=== PATIENT | female | born 1935 | race Caucasian/White ===

== ENCOUNTER 2021-06-09 20:27 | Emergency (ER) | payer MEDICARE ==
[~2021-06-09] VITALS: Ht 157.5 cm; Wt 83.0 kg
[~2021-06-09 20:27] MED LIST: ADVAIR DISK2 IN; ADVAIR DISKU IN; ALDACTONE25 MG OR; AMBIEN5 MG PO; AMITRIPTYLIN25 MG OR; AMITRIPTYLIN25 MG PO; AMLODIPINE BESYL5 MG PO; AMLODIPINE10 MG PO; APAP PO; ASACOL400 MG OR; BAYER ASPIRIN325 MG PO; BAYER LOW81 MG PO; BENZONATATE100 MG OR; CELEBREX200 MG OR; CELEBREX200 MG PO; CHERATUSSIN OR; CIPRO250 MG PO; CIPRO500 MG PO; CRESTOR20 MG PO; DIAZEPAM5 MG PO; DOXYCYCLINE HY100 MG PO; FLAGYL500 MG PO; FLEXERIL10 MG PO; FLULAVAL IM; IMDUR30 MG OR; KLOR-CON M2020 MEQ OR; LASIX 20 MG TAB20 MG PO; LEXAPRO20 MG OR; LIPITOR10 MG PO; LOMOTIL2.5 MG PO; LORTAB 7.5 PO; LORTAB 7.5-3251 TAB PO; LORTAB 7.57.5 MG PO; MEDDOSEPAK PO; MEDROL4 M1 PO; MELOXICAM7.5 MG PO; MICARDIS80 MG PO; MOBIC7.5 MG PO; NEXIUM40 M1 OR; NEXIUM40 M1 PO; NORVASC10 MG OR; OXYCOD PO; PAROXETINE20 MG PO; PERCOCET1 TA4 PO; PLAVIX75 MG OR; PREDNISODT10 PO; RESTORIL15 MG PO; TEMAZEPAM15 MG PO; TIZANIDINE4 MG PO; TOPROL XL OR; ULTRAM50 MG PO; VENLAFAXINE HCL75 M1 PO; ZITHROMAX250 MG OR; ZOLPIDEM5 MG PO; [UNRECOGNIZED DRUG - CODE] TD
[2021-06-09 21:05] LABS: HEMATOCRIT 41.6 % (37.0-47.0); HEMOGLOBIN 12.5 g/dl (12.0-16.0); MEAN CELL VOLUME 88.7 fL CALC (80.0-100.0); MEAN CORPUSCULAR HGB 26.7 pG CALC (26.0-32.0); NEUT# 5.08 thou/uL (2.00-7.15); RED BLOOD COUNT 4.69 mill/uL (4.20-5.60); RED CELL DISTRI WIDTH 15.2 % (11.5-15.5)
[2021-06-09 21:06] LABS: URINE BILIRUBIN - DIPSTICK NEGATIVE (NEGATIVE); URINE BLOOD DIPSTICK NEGATIVE (NEGATIVE); URINE COLOR YELLOW; URINE GLUCOSE - DIPSTICK NEGATIVE (NEGATIVE); URINE KETONE NEGATIVE (NEGATIVE); URINE LEUK ESTERASE NEGATIVE (NEGATIVE); URINE PROTEIN - DIPSTICK NEGATIVE (NEG-TRACE); URINE SPECIFIC GRAVITY >=1.030; URINE UROBILINOGEN - DIPSTICK 0.2 E.U./dL (0.2)
[2021-06-09 21:09] LABS: URINE NITRITE - DIPSTICK NEGATIVE (Negative)
[2021-06-09 21:16] LABS: ALBUMIN 3.9 g/dL (3.2-5.0); ALKALINE PHOSPHATASE 76 u/l (38-126); ANION GAP 11 (6-22 (CALC)); BILIRUBIN, TOTAL 0.4 mg/dL (0.0-1.4); BUN 14 mg/dL (8-23); BUN/CREATININE RATIO 14 (12-20 (CALC)); CARBON DIOXIDE 28 mmol/l (22-30); CHLORIDE 106 mmol/l (95-108); GFR 53 ML/MIN (>=60 (CALC)); GFR FOR AFR.AMER. > 60 ML/MIN (>=60 (CALC)); POTASSIUM 3.9 mmol/l (3.5-5.1); SGOT/AST 25 u/l (9-36); SODIUM 141 mmol/l (137-146)
[2021-06-09] MEDS ORDERED: ULTRAM50 M1 PO (22:08)
[2021-06-09] MEDS ORDERED: CYCLOBENZAPRINE10 MG PO (22:08)
[2021-06-10 00:10] VITALS: BP 90/50
== END 2021-06-10 00:10 | disposition home or self-care (01) ==
LOC: ED 20:27
PROVIDERS: Emergency Medicine
DX: M47.816 Spondylosis without myelopathy or radiculopathy, lumbar region (principal); I10 Essential (primary) hypertension; F41.9 Anxiety disorder, unspecified

== ENCOUNTER 2021-12-15 08:25 | Emergency (ER) | payer MEDICARE ==
[~2021-12-15] VITALS: Ht 157.5 cm; Wt 90.7 kg
[~2021-12-15 08:25] MED LIST changes: +CYCLOBENZAPRINE10 MG PO; +ULTRAM50 M1 PO
[2021-12-15 08:30] VITALS: BP 142/69
[2021-12-15 08:46] LABS: HEMATOCRIT 41.2 % (37.0-47.0); HEMOGLOBIN 12.6 g/dl (12.0-16.0); IMMATURE GRANULOCYTES 0.1 % (0.0-5.0); MEAN CELL VOLUME 86.9 fL CALC (80.0-100.0); MEAN CORPUSCULAR HGB 26.6 pG CALC (26.0-32.0); MEAN CORPUSCULAR HGB CONC 30.6 g/dL CAL (32.0-36.0); NEUT# 6.26 thou/uL (2.00-7.15); RED BLOOD COUNT 4.74 mill/uL (4.20-5.60); RED CELL DISTRI WIDTH 15.3 % (11.5-15.5)
[2021-12-15 09:00] VITALS: BP 128/68
[2021-12-15 09:37] LABS: GFR FOR AFR.AMER. > 60 ML/MIN (>=60 (CALC)); GFR OTHER RACES 60 ML/MIN (>=60 (CALC))
[2021-12-15 09:44] LABS: ALBUMIN 3.9 g/dL (3.2-5.0); ALKALINE PHOSPHATASE 71 u/l (38-126); ANION GAP 9 (6-22 (CALC)); BILIRUBIN, TOTAL 0.5 mg/dL (0.0-1.4); BUN 20 mg/dL (8-23); BUN/CREATININE RATIO 21 (12-20 (CALC)); CARBON DIOXIDE 30 mmol/l (22-30); CHLORIDE 105 mmol/l (95-108); CREATININE 0.9 mg/dL (0.5-1.0); GFR FOR AFR.AMER. > 60 ML/MIN (>=60 (CALC)); GFR OTHER RACES 60 ML/MIN (>=60 (CALC)); POTASSIUM 4.3 mmol/l (3.5-5.1); SGOT/AST 29 u/l (9-36); SODIUM 139 mmol/l (137-146); TOTAL PROTEIN 7.1 g/dL (6.3-8.2)
[2021-12-15 10:47] VITALS: BP 114/52
[2021-12-15 11:01] VITALS: BP 125/60
[2021-12-15 11:15] LABS: URINE BILIRUBIN - DIPSTICK NEGATIVE (NEGATIVE); URINE BLOOD DIPSTICK NEGATIVE (NEGATIVE); URINE COLOR YELLOW; URINE GLUCOSE - DIPSTICK NEGATIVE (NEGATIVE); URINE KETONE NEGATIVE (NEGATIVE); URINE LEUK ESTERASE TRACE (NEGATIVE); URINE PROTEIN - DIPSTICK NEGATIVE (NEG-TRACE); URINE SPECIFIC GRAVITY <=1.005; URINE UROBILINOGEN - DIPSTICK 0.2 E.U./dL (0.2)
[2021-12-15 11:18] LABS: URINE NITRITE - DIPSTICK NEGATIVE (Negative)
[2021-12-15 11:31] VITALS: BP 133/63
[2021-12-15 11:33] VITALS: BP 133/63
--- NOTE | 2021-12-17 13:48 | NUR ---
PRELIMINARY BLOOD CULTURE SHOWS GRAM POSITIVE COCCI IN 2/[address] MANRIQUEZ. RESULTS REPORTED TO NURSE ELLIS AT [facility] AND FAXED TO [phone]. WILL F/U WITH FINALS
== END 2021-12-15 11:57 | disposition home or self-care (01) ==
LOC: ED 08:25
PROVIDERS: Family Medicine
DX: R06.02 Shortness of breath (principal); I11.0 Hypertensive heart disease with heart failure; I50.9 Heart failure, unspecified; F41.9 Anxiety disorder, unspecified; E66.9 Obesity, unspecified; J44.9 Chronic obstructive pulmonary disease, unspecified; Z20.822 Contact with and (suspected) exposure to COVID-19
CPT/HCPCS: Q9967

== ENCOUNTER 2021-12-18 08:53 | Observation (INO) | payer MEDICARE ==
[2021-12-18] VITALS (8 sets, daily range): BP systolic 117–159; BP diastolic 41–83
[~2021-12-18] VITALS: Ht 157.5 cm; Wt 91.4 kg
[2021-12-18 09:25] LABS: HEMATOCRIT 40.7 % (37.0-47.0); HEMOGLOBIN 12.5 g/dl (12.0-16.0); IMMATURE GRANULOCYTES 0.1 % (0.0-5.0); MEAN CORPUSCULAR HGB 26.7 pG CALC (26.0-32.0); MEAN CORPUSCULAR HGB CONC 30.7 g/dL CAL (32.0-36.0); NEUT# 6.43 thou/uL (2.00-7.15); RED BLOOD COUNT 4.68 mill/uL (4.20-5.60); RED CELL DISTRI WIDTH 15.5 % (11.5-15.5)
[2021-12-18 09:40] LABS: ALKALINE PHOSPHATASE 67 u/l (38-126); ANION GAP 13 (6-22 (CALC)); BILIRUBIN, TOTAL 0.4 mg/dL (0.0-1.4); BUN 24 mg/dL (8-23); BUN/CREATININE RATIO 26 (12-20 (CALC)); CARBON DIOXIDE 29 mmol/l (22-30); CHLORIDE 104 mmol/l (95-108); CREATININE 0.9 mg/dL (0.5-1.0); GFR FOR AFR.AMER. > 60 ML/MIN (>=60 (CALC)); GFR OTHER RACES 60 ML/MIN (>=60 (CALC)); POTASSIUM 4.5 mmol/l (3.5-5.1); SGOT/AST 24 u/l (9-36); SODIUM 142 mmol/l (137-146); TOTAL PROTEIN 7.3 g/dL (6.3-8.2)
[2021-12-18] MEDS ORDERED: ACIDOPHILU4 PO (12:09)
[2021-12-18] MEDS ORDERED: NORVASC5 M1 PO (12:09)
[2021-12-18] MEDS ORDERED: ASPIRIN81 MG PO (12:10)
[2021-12-18] MEDS ORDERED: BUPROPION150 M3 PO (12:10)
[2021-12-18] MEDS ORDERED: ABILIFY MYCITE PO (12:10)
[2021-12-18] MEDS ORDERED: CLONAZEPAM1 MG PO ×2 (12:11→14:40)
[2021-12-18] MEDS ORDERED: CITALOPRAM10 M1 PO ×2 (12:11→14:38)
[2021-12-18] MEDS ORDERED: CLOPIDOGREL75 MG PO (12:12)
[2021-12-18] MEDS ORDERED: PEPCID AC20 M1 PO (12:13)
[2021-12-18] MEDS ORDERED: ISOSORB MONO20 MG PO (12:13)
[2021-12-18] MEDS ORDERED: LOSARTAN POTASS50 MG PO (12:13)
[2021-12-18] MEDS ORDERED: MICONAZOLE23 (12:14)
[2021-12-18] MEDS ORDERED: KAPSPARGO SPRIN25 MG PO (12:14)
[2021-12-18] MEDS ORDERED: DITROPAN5 MG/TA1 PO (12:15)
[2021-12-18] MEDS ORDERED: POTASSIUM CHLO10 MEQ PO (12:15)
[2021-12-18] MEDS ORDERED: MULTI VIT PO (14:32)
[2021-12-18] MEDS ORDERED: ISOSORB DIN20 MG PO (14:45)
[2021-12-18] MEDS ORDERED: TOPROL XL25 M1 PO (14:47)
[2021-12-18] MEDS ORDERED: MICONAZOLE23 TOP (14:50)
[2021-12-18] MEDS ORDERED: OXYBUTYNIN CHLOR5 M1 PO (14:51)
[2021-12-19] VITALS (8 sets, daily range): BP systolic 92–165; BP diastolic 49–75
[2021-12-19 14:38] LABS: ALBUMIN 3.9 g/dL (3.2-5.0); ALKALINE PHOSPHATASE 68 u/l (38-126); ANION GAP 10 (6-22 (CALC)); BILIRUBIN, TOTAL 0.4 mg/dL (0.0-1.4); BUN 23 mg/dL (8-23); BUN/CREATININE RATIO 23 (12-20 (CALC)); CARBON DIOXIDE 28 mmol/l (22-30); CHLORIDE 105 mmol/l (95-108); GFR FOR AFR.AMER. > 60 ML/MIN (>=60 (CALC)); GFR OTHER RACES 53 ML/MIN (>=60 (CALC)); POTASSIUM 3.9 mmol/l (3.5-5.1); SGOT/AST 24 u/l (9-36); SODIUM 139 mmol/l (137-146); TOTAL PROTEIN 7.2 g/dL (6.3-8.2)
[2021-12-20 00:09] VITALS: BP 115/58
[2021-12-20 04:59] VITALS: BP 115/51
[2021-12-20 05:46] LABS: ANION GAP 12 (6-22 (CALC)); BUN 28 mg/dL (8-23); BUN/CREATININE RATIO 30 (12-20 (CALC)); CARBON DIOXIDE 29 mmol/l (22-30); CHLORIDE 107 mmol/l (95-108); CREATININE 0.9 mg/dL (0.5-1.0); GFR FOR AFR.AMER. > 60 ML/MIN (>=60 (CALC)); GFR OTHER RACES 60 ML/MIN (>=60 (CALC)); MAGNESIUM 2.2 mg/dL (1.6-2.3); POTASSIUM 4.6 mmol/l (3.5-5.1); SODIUM 143 mmol/l (137-146)
[2021-12-20 07:29] VITALS: BP 139/64
[2021-12-20 10:41] VITALS: BP 128/64
[2021-12-20] MEDS ORDERED: GUAIFENESI100 MG/51 PO (11:32)
[2021-12-20] MEDS ORDERED: MEDDOSEPAK PO (11:32)
[2021-12-20] MEDS ORDERED: ZPAK PO (11:32)
[2021-12-20] MEDS ORDERED: VENTOLIN HFA108 MCG IN (11:32)
== END 2021-12-20 15:25 ==
LOC: ED 08:53 → ED-I 11:41 → ED 11:54 → MS2 11:55
PROVIDERS: Family Medicine; Nurse Practitioner; ADMIT Internal Medicine; ATTEND Internal Medicine
DX: R06.02 Shortness of breath (principal); R06.2 Wheezing; R05.9 Cough, unspecified; R13.10 Dysphagia, unspecified; I11.0 Hypertensive heart disease with heart failure; I50.9 Heart failure, unspecified; I25.10 Atherosclerotic heart disease of native coronary artery without angina pectoris; J44.9 Chronic obstructive pulmonary disease, unspecified; F32.A Depression, unspecified; E03.9 Hypothyroidism, unspecified; F41.8 Other specified anxiety disorders; S40.022A Contusion of left upper arm, initial encounter; S40.021A Contusion of right upper arm, initial encounter; W01.0XXA Fall on same level from slipping, tripping and stumbling without subsequent striking against object, initial encounter; Y93.89 Activity, other specified; Y92.230 Patient room in hospital as the place of occurrence of the external cause; Z63.4 Disappearance and death of family member; Z20.822 Contact with and (suspected) exposure to COVID-19
CPT/HCPCS: J1650

== ENCOUNTER 2022-08-01 15:44 | Emergency (ER) | payer MEDICARE ==
[~2022-08-01] VITALS: Ht 157.5 cm; Wt 84.4 kg
[2022-08-01] VITALS (9 sets, daily range): BP systolic 112–139; BP diastolic 58–69
[~2022-08-01 15:44] MED LIST changes: +ABILIFY MYCITE PO; +ACIDOPHILU4 PO; +ASPIRIN81 MG PO; +BUPROPION150 M3 PO; +CITALOPRAM10 M1 PO; +CLONAZEPAM1 MG PO; +CLOPIDOGREL75 MG PO; +DITROPAN5 MG/TA1 PO; +GUAIFENESI100 MG/51 PO; +ISOSORB DIN20 MG PO; +ISOSORB MONO20 MG PO; +KAPSPARGO SPRIN25 MG PO; +LOSARTAN POTASS50 MG PO; +MICONAZOLE23; +MICONAZOLE23 TOP; +MULTI VIT PO; +NORVASC5 M1 PO; +OXYBUTYNIN CHLOR5 M1 PO; +PEPCID AC20 M1 PO; +POTASSIUM CHLO10 MEQ PO; +TOPROL XL25 M1 PO; +VENTOLIN HFA108 MCG IN; +ZPAK PO
[2022-08-01 16:20] LABS: BASO% 0.5 % (0-3); EOS% 2.5 % (0-8); HEMOGLOBIN 12.1 g/dl (12.0-16.0); IMMATURE GRANULOCYTES 0.1 % (0.0-5.0); LYMPH% 27.3 % (15-41); MEAN CORPUSCULAR HGB 26.3 pG CALC (26.0-32.0); MEAN CORPUSCULAR HGB CONC 30.3 g/dL CAL (32.0-36.0); MONO% 8.8 % (2-13); NEUT# 4.67 thou/uL (2.00-7.15); NEUT% 60.8 % (42-76); RED BLOOD COUNT 4.6 mill/uL (4.20-5.60); RED CELL DISTRI WIDTH 15.2 % (11.5-15.5)
[2022-08-01 16:42] LABS: ALBUMIN 3.9 g/dL (3.2-5.0); BILIRUBIN, TOTAL 0.3 mg/dL (0.02-1.3); CREATININE 1.1 mg/dL (0.5-1.0); POTASSIUM 3.8 mmol/l (3.5-5.1); TOTAL PROTEIN 6.6 g/dL (6.3-8.2)
== END 2022-08-01 18:25 ==
LOC: ED 15:44
PROVIDERS: Family Medicine
DX: R42 Dizziness and giddiness (principal); I11.0 Hypertensive heart disease with heart failure; I50.9 Heart failure, unspecified; I25.10 Atherosclerotic heart disease of native coronary artery without angina pectoris; J44.9 Chronic obstructive pulmonary disease, unspecified; F41.9 Anxiety disorder, unspecified; F32.A Depression, unspecified

== ENCOUNTER 2024-01-10 12:38 | Observation (INO) | payer MEDICARE ==
[~2024-01-10] VITALS: Ht 157.5 cm; Wt 89.2 kg
[2024-01-10] VITALS (32 sets, daily range): BP systolic 92–188; BP diastolic 47–112
[~2024-01-10 12:38] MED LIST changes: +ADVAIR DISK1 INH; +DICLOFENAC SODIUM1 %; +MONTELUKAST SOD10 MG PO; +TRAMADOL HCL50 MG PO
[2024-01-10 12:59] LABS: BASO% 0.4 % (0-3); EOS% 0.5 % (0-8); HEMATOCRIT 41.1 % (37.0-47.0); HEMOGLOBIN 12.6 g/dl (12.0-16.0); IMMATURE GRANULOCYTES 0.1 % (0.0-5.0); LYMPH% 26.5 % (15-41); MEAN CORPUSCULAR HGB 27.3 pG CALC (26.0-32.0); MEAN CORPUSCULAR HGB CONC 30.7 g/dL CAL (32.0-36.0); MONO% 6.7 % (2-13); NEUT# 7.22 thou/uL (2.00-7.15); NEUT% 65.8 % (42-76); RED BLOOD COUNT 4.62 mill/uL (4.20-5.60); RED CELL DISTRI WIDTH 14.6 % (11.5-15.5)
[2024-01-10 13:18] LABS: INTERNATIONAL NORMALIZED RATIO 1.1 RATIO (0.7-1.3)
[2024-01-10 13:19] LABS: PROTHROMBIN TIME 10.3 SECONDS (9.0-12.5)
[2024-01-10 13:22] LABS: ALBUMIN 4.1 g/dL (3.2-5.0); ALKALINE PHOSPHATASE 57 u/l (38-126); ANION GAP 7 (6-22 (CALC)); BILIRUBIN, TOTAL 0.4 mg/dL (0.02-1.3); BUN 20 mg/dL (8-23); BUN/CREATININE RATIO 22 (12-20 (CALC)); CALCULATED LDLCHOLESTEROL 177 mg/dL (62-129 (CALC)); CARBON DIOXIDE 29 mmol/l (22-30); CHLORIDE 108 mmol/l (95-108); CREATININE 0.9 mg/dL (0.5-1.0); ESTIMATED GFR 62 ML/MIN (>=90 (CALC)); HDL CHOLESTEROL 51 mg/dL (39.0-59.0); SGOT/AST 25 u/l (9-36); SODIUM 140 mmol/l (137-146); TOTAL CHOLESTEROL 255 mg/dl (0-199); TOTAL PROTEIN 7.3 g/dL (6.3-8.2); TOTAL TRIGLYCERIDES 134 mg/dl (0-149); VLDL CHOLESTROL 27 mg/dl (0-48 (CALC))
[2024-01-10] MEDS ORDERED: ZOFRAN4 MG/TAB PO (13:26)
[2024-01-10] MEDS ORDERED: METHYLPRED4 MG PO (13:27)
[2024-01-10] MEDS ORDERED: DEXTROSE 250 ML IV PRN (15:55)
[2024-01-10] MEDS ORDERED: MAGNESIUM HYDROXIDE 30 ML UDC PO PRN (15:55)
[2024-01-10] MEDS ORDERED: ACETAMINOPHEN 325 MG/TAB PO PRN (15:55)
[2024-01-10] MEDS ORDERED: ASPIRIN 81 MG/TAB PO ONE (15:55)
[2024-01-10] MEDS ORDERED: SODIUM CHLORIDE 0.9% 1,000 ML IV PRN (15:55)
[2024-01-10 16:02] LABS: URINE BILIRUBIN - DIPSTICK Negative (NEGATIVE); URINE BLOOD DIPSTICK Negative (NEGATIVE); URINE COLOR Yellow; URINE GLUCOSE - DIPSTICK Negative (NEGATIVE); URINE KETONE Negative (NEGATIVE); URINE LEUK ESTERASE Negative (NEGATIVE); URINE NITRITE - DIPSTICK Negative (Negative); URINE PROTEIN - DIPSTICK Negative (NEG-TRACE); URINE UROBILINOGEN - DIPSTICK 0.2 E.U./dL (0.2)
[2024-01-10] MEDS ORDERED: hydrALAZINE HCL 20 MG/ML VIAL(1 ML) IV PRN (16:05)
[2024-01-10] MEDS ORDERED: ARIPiprazole 10 MG/TAB PO SCH (21:00)
[2024-01-10] MEDS ORDERED: FUROSEMIDE 20 MG/TAB PO SCH (21:00)
[2024-01-10] MEDS ORDERED: ISOSORBIDE DINITRATE 10 MG TAB PO SCH (21:00)
[2024-01-10] MEDS ORDERED: MONTELUKAST SODIUM 10 MG/TAB PO SCH (21:00)
[2024-01-10] MEDS ORDERED: ATORVASTATIN CALCIUM 40 MG/TAB PO SCH (21:00)
[2024-01-10] MEDS ORDERED: ENOXAPARIN SODIUM 40 MG/0.4 ML SYR SC SCH (21:00)
[2024-01-10] MEDS ORDERED: FAMOTIDINE 20 MG/TAB PO SCH (21:00)
[2024-01-10] MEDS ORDERED: buPROPion HCL 150 MG TAB SR PO SCH (21:00)
[2024-01-11] VITALS (18 sets, daily range): BP systolic 80–139; BP diastolic 39–70
[2024-01-11 06:16] LABS: BASO% 0.6 % (0-3); EOS% 1.4 % (0-8); HEMATOCRIT 39.9 % (37.0-47.0); HEMOGLOBIN 12.3 g/dl (12.0-16.0); IMMATURE GRANULOCYTES 0.1 % (0.0-5.0); LYMPH% 27.3 % (15-41); MEAN CELL VOLUME 89.7 fL CALC (80.0-100.0); MEAN CORPUSCULAR HGB 27.6 pG CALC (26.0-32.0); MEAN CORPUSCULAR HGB CONC 30.8 g/dL CAL (32.0-36.0); MONO% 8.1 % (2-13); NEUT# 6.12 thou/uL (2.00-7.15); NEUT% 62.5 % (42-76); RED BLOOD COUNT 4.45 mill/uL (4.20-5.60); RED CELL DISTRI WIDTH 14.6 % (11.5-15.5)
[2024-01-11 06:22] LABS: ALBUMIN 3.6 g/dL (3.2-5.0); BILIRUBIN, TOTAL 0.5 mg/dL (0.02-1.3); CREATININE 0.9 mg/dL (0.5-1.0); MAGNESIUM 2.1 mg/dL (1.6-2.3); POTASSIUM 3.9 mmol/l (3.5-5.1); TOTAL PROTEIN 6.4 g/dL (6.3-8.2)
[2024-01-11] MEDS ORDERED: NYSTATIN 1500 MU/BTL TOP SCH (09:00)
[2024-01-11] MEDS ORDERED: MECLIZINE HCL 25 MG/TAB PO SCH (09:00)
[2024-01-11] MEDS ORDERED: LOSARTAN Potassium 50 MG/TAB PO SCH (09:00)
[2024-01-11] MEDS ORDERED: CLOPIDOGREL BISULFATE 75 MG/TAB TAB PO SCH (09:00)
[2024-01-11] MEDS ORDERED: FLUTICASONE/SALMETEROL 250 MCG/50 MCG PER DOSE INH IN SCH (09:00)
[2024-01-11] MEDS ORDERED: ASPIRIN 81 MG/TAB PO SCH (09:00)
[2024-01-11] MEDS ORDERED: NYSTOP100000 UNI TOP (14:45)
== END 2024-01-11 15:21 ==
LOC: ED 12:38 → ED-I 13:33 → ED 13:33 → ED-I 15:32 → ED 15:55 → ICU 15:56
PROVIDERS: Family Medicine; ADMIT Student in an Organized Health Care Education/Training Program; ATTEND Student in an Organized Health Care Education/Training Program
DX: R42 Dizziness and giddiness (principal); R26.89 Other abnormalities of gait and mobility; R53.1 Weakness; I11.0 Hypertensive heart disease with heart failure; I50.9 Heart failure, unspecified; I25.10 Atherosclerotic heart disease of native coronary artery without angina pectoris; J44.9 Chronic obstructive pulmonary disease, unspecified; E03.9 Hypothyroidism, unspecified; F32.A Depression, unspecified; F41.9 Anxiety disorder, unspecified; D69.2 Other nonthrombocytopenic purpura; Z20.822 Contact with and (suspected) exposure to COVID-19
CPT/HCPCS: J1650; Q9967